=== PATIENT | female | born 1955 ===

== ENCOUNTER 2022-03-16 14:29 | Inpatient (IN) | payer OTHER, MEDICARE ==
[2022-03-16] MEDS ORDERED: Lidocaine 1% (PF) 30 ML VIAL ONE (15:04)
[2022-03-16 15:06] LABS: Hemoglobin 13.2 g/dL (12.0-16.0); Mean Corpuscular HGB CONC 31.8 g/dL (32.0-36.0); Mean Corpuscular Hemoglobin 30.3 pg (27.0-31.0); Mean Corpuscular Volume 95.3 fL (78.0-98.0); Mean Platelet Volume 6.5 fL (7.4-10.4); Platelet Count 495 thou/uL (130-400); RBC Distribution Width 13.1 % (11.5-14.5); Red Blood Cell (RBC) Count 4.37 mill/uL (4.20-5.40); White Blood Cell (WBC) Count 13.1 thou/uL (4.8-10.8)
[2022-03-16] MEDS ORDERED: Ketamine 50 MG/ML (10ML VIAL) ONE (15:08)
[2022-03-16 15:24] LABS: Band 10 % (5-11); Eosinophils 1 % (0-10); Lymphocytes 8 % (21-51); MDiff Complete? YES; Metamyelocyte 2 % (0-0); Monocytes 5 % (0-10); Myelocyte 5 % (0-0); Neutrophil 68 % (42-75); Platelet Morphology Comment Appears Increased; Polychromasia SLIGHT = 2-3 cells (100X) (0-2/hpf); Promyelocytes 1 % (0-0)
[2022-03-16 15:29] LABS: ALT (SGPT) 36 U/L (8-55); AST (SGOT) 25 U/L (5-34); Albumin 4.5 g/dL (3.4-4.8); Alkaline Phosphatase 75 U/L (40-110); Anion Gap 13 mmol/L (10-20); BUN (Urea Nitrogen) 28 mg/dL (9.8-20.1); Bilirubin, Total 1.3 mg/dL (0.2-1.2); Calc. Creatinine Clearance 0 mL/min (70-130); Calcium 9.7 mg/dL (7.8-10.44); Carbon Dioxide 24 mmol/L (23-31); Chloride 106 mmol/L (98-107); Globulin 2.3 g/dL (2.4-3.5); Glucose 115 mg/dL (80-115); Potassium 5.3 mmol/L (3.5-5.1); Protein, Total 6.8 g/dL (5.8-8.1); Sodium 138 mmol/L (136-145)
[2022-03-16] MEDS ORDERED: hydrALAZINE 20 MG/ML VIAL SLOW IVP PRN (16:20)
[2022-03-16] MEDS ORDERED: Ondansetron PF 4 MG/2 ML Vial IVP PRN (16:20)
[2022-03-16] MEDS ORDERED: Morphine 2 MG/ML VIAL SLOW IVP PRN (16:20)
[2022-03-16] MEDS ORDERED: Acetaminophen 325 MG TAB PO PRN (16:20)
[2022-03-16] MEDS ORDERED: Promethazine HCl 25 MG/ML VIAL IM PRN (16:20)
[2022-03-16] MEDS ORDERED: traMADol HCl 50 MG TAB PO PRN (16:22)
[2022-03-16] MEDS ORDERED: Cyclobenzaprine 10 MG TAB PO PRN (16:22)
[2022-03-16] MEDS: Acetaminophen 500 MG TAB PO SCH ×2 (17:34→23:10)
[2022-03-16] MEDS: Ibuprofen 200 MG TAB PO SCH ×2 (17:35→23:10)
[2022-03-16] MEDS: traMADol HCl 50 MG TAB PO SCH ×2 (17:36→23:11)
[2022-03-16] MEDS: Sodium Chloride 0.9% 1,000 ML IV SCH (17:41)
[2022-03-16] MEDS: Senokot S 8.6-50 MG TAB PO SCH (21:45)
[2022-03-16] MEDS ORDERED: Aspirin/APAP/Caffeine Tab (Excedrin Migraine) PO PRN (21:54)
[2022-03-16] MEDS: Gabapentin 100 MG CAP PO SCH (21:55)
[2022-03-16] MEDS: Famotidine 20 MG TAB PO SCH (21:55)
[2022-03-16 23:49] LABS: SARS-CoV-2 NAA Rapid Test Not Detected (NotDetected)
[2022-03-17] MEDS: Sodium Chloride 0.9% 1,000 ML IV SCH (02:12)
[2022-03-17] MEDS: Acetaminophen 500 MG TAB PO SCH ×4 (03:56→22:20)
[2022-03-17] MEDS: traMADol HCl 50 MG TAB PO SCH ×3 (05:17→17:19)
[2022-03-17] MEDS: Ibuprofen 200 MG TAB PO SCH ×2 (05:18→17:17)
[2022-03-17 06:52] LABS: #Eosinphils 0.4 thou/uL (0.0-0.7); #Lymphocytes 1.6 thou/uL (1.20-3.40); #Neutrophils 4.4 thou/uL (1.40-6.50); %Basophils 0.6 % (0.0-1.0); %Eosinophils 5.9 % (0.0-10.0); %Lymphocytes 21.7 % (21.0-51.0); %Monocytes 13.6 % (0.0-10.0); %Neutrophils 58.2 % (42.0-75.0); Mean Corpuscular HGB CONC 33.3 g/dL (32.0-36.0); Mean Corpuscular Volume 95.9 fL (78.0-98.0); Mean Platelet Volume 6.5 fL (7.4-10.4); Platelet Count 401 thou/uL (130-400); RBC Distribution Width 13.4 % (11.5-14.5); Red Blood Cell (RBC) Count 3.45 mill/uL (4.20-5.40); White Blood Cell (WBC) Count 7.5 thou/uL (4.8-10.8)
[2022-03-17 07:11] LABS: Anion Gap 12 mmol/L (10-20); BUN (Urea Nitrogen) 19 mg/dL (9.8-20.1); Calc. Creatinine Clearance 0 mL/min (70-130); Calcium 8.5 mg/dL (7.8-10.44); Carbon Dioxide 23 mmol/L (23-31); Chloride 109 mmol/L (98-107); Glucose 90 mg/dL (80-115); Magnesium 2.1 mg/dL (1.6-2.6); Potassium 4.5 mmol/L (3.5-5.1); Sodium 139 mmol/L (136-145)
[2022-03-17 07:12] LABS: Phosphorus 3.4 mg/dL (2.3-4.7)
[2022-03-17] MEDS: Senokot S 8.6-50 MG TAB PO SCH ×2 (09:34→20:47)
[2022-03-17] MEDS: Gabapentin 100 MG CAP PO SCH ×3 (09:34→20:41)
[2022-03-17] MEDS: Famotidine 20 MG TAB PO SCH ×2 (09:35→20:42)
[2022-03-17] MEDS: Enoxaparin Sodium 40 MG/0.4 ML SYRINGE SC SCH (09:37)
[2022-03-17] MEDS: Polyethylene Glycol 3350 17 GM Packet PO SCH (09:37)
[2022-03-17] MEDS: Loperamide HCl 2 MG CAP PO PRN ×2 (11:49→17:16)
[2022-03-18] MEDS: traMADol HCl 50 MG TAB PO SCH ×3 (00:24→11:40)
[2022-03-18] MEDS: Ibuprofen 200 MG TAB PO SCH ×3 (00:25→17:34)
[2022-03-18] MEDS: Acetaminophen 500 MG TAB PO SCH ×3 (04:21→17:35)
[2022-03-18] MEDS: Loperamide HCl 2 MG CAP PO PRN (04:28)
[2022-03-18] MEDS: Famotidine 20 MG TAB PO SCH (09:06)
[2022-03-18] MEDS: Gabapentin 100 MG CAP PO SCH ×2 (09:06→16:17)
[2022-03-18] MEDS: Polyethylene Glycol 3350 17 GM Packet PO SCH (09:11)
[2022-03-18] MEDS: Senokot S 8.6-50 MG TAB PO SCH (09:12)
[2022-03-18] MEDS: Enoxaparin Sodium 40 MG/0.4 ML SYRINGE SC SCH (09:12)
== END 2022-03-18 18:00 | disposition home or self-care (01) | DRG 200 ==
LOC: ERS 14:29 → SJJU 15:50
PROVIDERS: ADMIT Surgery; ATTEND Surgery
PROC: 0W9930Z Drainage of Right Pleural Cavity with Drainage Device, Percutaneous Approach (ICD-10-PCS; principal; 2022-03-16)
DX: S27.0XXA Traumatic pneumothorax, initial encounter (principal); S22.41XA Multiple fractures of ribs, right side, initial encounter for closed fracture; Z20.822 Contact with and (suspected) exposure to COVID-19; T79.7XXA Traumatic subcutaneous emphysema, initial encounter; V80.010A Animal-rider injured by fall from or being thrown from horse in noncollision accident, initial encounter; Y93.52 Activity, horseback riding; Z79.899 Other long term (current) drug therapy
CPT/HCPCS: 36415; 71045; 80048; 80053; 83735; 84100; 85025; 86850; 86900; 86901; J2001; J2270; J7050; U0002

== ENCOUNTER 2023-04-13 05:32 | Observation (INO) | payer MEDICARE ==
[2023-04-08 10:29] VITALS: BMI 20.9
[2023-04-13] MEDS ORDERED: Vancomycin 1 GM/200 ML (FROZEN) BAG ONE (05:57)
[2023-04-13] MEDS ORDERED: Sodium Chloride 0.9% 100 ML ONE ×2 (05:57→06:58)
[2023-04-13] MEDS ORDERED: Tranexamic Acid 1,000 MG/10 ML VIAL ONE (05:57)
[2023-04-13] MEDS ORDERED: Bupivacaine PF 0.5% 30 ML VIAL ONE ×2 (06:28→06:40)
[2023-04-13] MEDS ORDERED: Midazolam HCl 2 mg/2 ml Vial ONE (06:39)
[2023-04-13] MEDS ORDERED: fentaNYL 50 mcg/mL 1 mL Vial ONE ×3 (06:39→08:31)
[2023-04-13] MEDS ORDERED: Lidocaine 1% (PF) 30 ML VIAL ONE (06:40)
[2023-04-13] MEDS ORDERED: CEFAZOLIN 2 GM VIAL ONE (06:58)
[2023-04-13] MEDS ORDERED: Bupivacaine HCl 0.5%/Epinephrine 1:200,000/PF 30 ml Vial ONE (07:10)
[2023-04-13] MEDS ORDERED: fentaNYL PF 100 MCG/2 ML SYRINGE ONE (07:18)
[2023-04-13] MEDS ORDERED: HYDROmorphone 0.5 MG/0.5 ML SYRINGE ONE (07:18)
[2023-04-13] MEDS ORDERED: Ketorolac Tromethamine 30 MG/ML VIAL ONE (07:26)
[2023-04-13] MEDS ORDERED: Ondansetron PF 4 MG/2 ML Vial ONE (07:26)
[2023-04-13] MEDS ORDERED: Lidocaine 1% PF 5 ML VIAL ONE (07:26)
[2023-04-13] MEDS ORDERED: Dexamethasone 20 MG/5 ML VIAL ONE (07:26)
[2023-04-13] MEDS ORDERED: PROPOFOL 200 MG/20 ML VIAL ONE (07:26)
[2023-04-13] MEDS ORDERED: fentaNYL 50 mcg/mL 1 mL Vial SLOW IVP PRN (07:41)
[2023-04-13] MEDS ORDERED: HYDROcodone/Acetaminophen 10/325 mg Tablet PO PRN (07:45)
[2023-04-13] MEDS ORDERED: Ropivacaine 0.2% 550 ML 550 ML NERVE BLCK SCH (07:45)
[2023-04-13] MEDS ORDERED: Promethazine HCl 25 MG/ML VIAL IM PRN ×3 (07:45→09:23)
[2023-04-13] MEDS ORDERED: Zolpidem Tartrate 5 MG TAB PO PRN ×2 (07:45→09:23)
[2023-04-13] MEDS ORDERED: traMADol HCl 50 MG TAB PO PRN ×2 (07:45)
[2023-04-13] MEDS ORDERED: Ondansetron PF 4 MG/2 ML Vial IVP PRN ×2 (07:45→09:23)
[2023-04-13] MEDS ORDERED: Ondansetron HCl/PF 4 MG/2 ML Vial IVP PRN (08:56)
[2023-04-13] MEDS ORDERED: PACU-Morphine 4MG/ML VIAL SLOW IVP PRN (08:56)
[2023-04-13] MEDS ORDERED: diphenhydrAMINE 25 MG CAP PO PRN (09:23)
[2023-04-13] MEDS ORDERED: Acetaminophen 325 MG TAB PO PRN (09:23)
[2023-04-13] MEDS ORDERED: Aspirin 81 mg Enteric Coated Tablet PO SCH (09:45)
[2023-04-13] MEDS: Ketorolac Tromethamine 30 MG/ML VIAL IVP SCH ×2 (11:13→17:40)
[2023-04-13] MEDS: Dextrose 5 %-0.45 % NaCl 1,000 ML IV SCH (11:15)
[2023-04-13] MEDS: CEFAZOLIN 2 GM in Sodium Chloride 0.9% 100 ML IVPB SCH (11:21)
[2023-04-13] MEDS ORDERED: Ketorolac Tromethamine 30 MG/ML VIAL IVP SCH (14:00)
[2023-04-13] MEDS: Aspirin 81 mg Enteric Coated Tablet PO SCH (20:52)
[2023-04-13] MEDS: HYDROcodone/Acetaminophen 10/325 mg Tablet PO PRN (20:52)
[2023-04-14] MEDS: CEFAZOLIN 2 GM in Sodium Chloride 0.9% 100 ML IVPB SCH (00:04)
[2023-04-14] MEDS: Ketorolac Tromethamine 30 MG/ML VIAL IVP SCH ×2 (00:04→05:25)
[2023-04-14] MEDS: Dextrose 5 %-0.45 % NaCl 1,000 ML IV SCH ×2 (00:09→05:26)
[2023-04-14] MEDS: HYDROcodone/Acetaminophen 10/325 mg Tablet PO PRN (05:25)
[2023-04-14 06:16] LABS: Hemoglobin 10.7 g/dL (12.0-16.0); Mean Corpuscular HGB CONC 32.6 g/dL (32.0-36.0); Mean Corpuscular Volume 91.9 fl (78.0-98.0); Mean Platelet Volume 9.8 fL (7.4-10.4); Platelet Count 221 10x3/uL (130-400); Red Blood Cell (RBC) Count 3.57 mill/uL (4.20-5.40)
[2023-04-14] MEDS ORDERED: Ferrous Gluconate 324 MG TAB PO SCH (08:00)
[2023-04-14 08:05] VITALS: BP 121/73
[2023-04-14 08:08] VITALS: TEMP 97.9
[2023-04-14] MEDS ORDERED: Multivitamin W/ Minerals 1 TAB PO SCH (09:00)
[2023-04-14] MEDS ORDERED: Senokot S 8.6-50 MG TAB PO SCH (09:00)
[2023-04-14] MEDS: Aspirin 81 mg Enteric Coated Tablet PO SCH (09:16)
== END 2023-04-14 10:45 | disposition home or self-care (01) ==
LOC: SDC 05:32 → SJJU 09:23
PROVIDERS: ADMIT Orthopaedic Surgery; ATTEND Orthopaedic Surgery
PROC: 0SRC0JA Replacement of Right Knee Joint with Synthetic Substitute, Uncemented, Open Approach (ICD-10-PCS; principal; 2023-04-13)
DX: M17.11 Unilateral primary osteoarthritis, right knee (principal); Z79.899 Other long term (current) drug therapy
CPT/HCPCS: 27447; 73560; 85027; 97116 ×2; 97530; A4306; C1776; J3010; J3370; 36415; 96365; 96366; 96375; 96376; G0378; J1100; J1170; J1885; J2001; J2250; J2405; J2704; J2795; J3490; J7042; S0020